=== PATIENT | female | born 1950 | race Caucasian/White ===

== ENCOUNTER → 2021-11-25 | Outpatient (CLI) | payer MEDICARE | LOC: EMI 14:45 → MRI 14:45 | DX: M75.101 Unspecified rotator cuff tear or rupture of right shoulder, not specified as traumatic (principal); M89.8X1 Other specified disorders of bone, shoulder | CPT/HCPCS: 73221 ==

== ENCOUNTER → 2021-12-19 | Outpatient (CLI) | payer MEDICARE ==
[~2021-12-19] MED LIST: ASPIRIN EC81 MG PO; ATORVASTATIN CA40 MG PO; HYDROCHLOROTH12.5 MG PO; LISINOPRIL40 MG PO; NORVASC5 MG PO
[2021-12-19 11:34] LABS: HEMOGLOBIN 15.2 gm/dl (12.3-15.3); RED BLOOD COUNT 4.75 M/UL (4.00-5.10); WHITE BLOOD COUNT 10.7 K/UL (4.5-11.0)
[2021-12-19 11:48] LABS: BUN/CREATININE RATIO 27 (0-10)
== END ==
LOC: OPSV2 09:55 → EDSTATUS 10:00 → OPSV2 10:00
PROVIDERS: Orthopaedic Surgery
DX: Z01.818 Encounter for other preprocedural examination (principal)
CPT/HCPCS: 71046; 80048; 85027; 93005

== ENCOUNTER → 2022-01-09 | Day surgery (SDC) | payer MEDICARE ==
[~2022-01-09] VITALS: Ht 162.6 cm; Wt 75.7 kg
[~2022-01-09] MED LIST changes: +CELEBREX200 MG PO; +NEURONTIN300 MG PO; +ROXICODONE5 MG PO; +ZOFRAN 4 MG TAB4 MG PO
[2022-01-09 07:42] LABS: BUN/CREATININE RATIO 22 (0-10)
== END | disposition home or self-care (01) ==
LOC: OR 06:16
PROVIDERS: Orthopaedic Surgery
DX: M75.101 Unspecified rotator cuff tear or rupture of right shoulder, not specified as traumatic (principal); S43.431A Superior glenoid labrum lesion of right shoulder, initial encounter; M25.711 Osteophyte, right shoulder; I10 Essential (primary) hypertension; E78.5 Hyperlipidemia, unspecified; Z79.82 Long term (current) use of aspirin; X58.XXXA Exposure to other specified factors, initial encounter
CPT/HCPCS: 36415; 73020; 80048; 86850; 86900; 86901; 94664; C1713; C1776; J0690; J1100; J2001; J2370; J2405; J2704; J2795; J3010